=== PATIENT | male | born 1940 | race Caucasian/White ===

== ENCOUNTER 2017-12-16 08:37 | Inpatient (IN) | payer MEDICARE, OTHER ==
[2017-12-11 11:43] LABS: BASOPHILS % (AUTO) 0.3 % (0-1); EOSINOPHILS # (AUTO) 0.4 X10'3 (0-0.9); EOSINOPHILS % (AUTO) 3.7 % (0-6); LYMPHOCYTES # (AUTO) 2.2 X10'3 (1.1-4.8); LYMPHOCYTES % (AUTO) 22.7 % (21-51); MEAN CORPUSCULAR HEMOGLOBIN 26.5 PG (27.0-31.0); MEAN CORPUSCULAR HGB CONC 32.3 % (33.0-36.5); MEAN CORPUSCULAR VOLUME 82.3 FL (78-98); MONOCYTES # (AUTO) 0.6 X10'3 (0-0.9); MONOCYTES % (AUTO) 6.2 % (2-12); NEUTROPHILS # (AUTO) 6.6 X10'3 (1.8-7.7); NEUTROPHILS % (AUTO) 67.1 % (42-75); PRE OP HEMATOCRIT 39.7 % (42.0-52.0); PRE OP HEMOGLOBIN 12.8 g/dL (14.0-17.9); PRE OP PLATELET COUNT 219 X10'3 (140-440); RED BLOOD COUNT 4.83 X10'6 (4.70-6.10); RED CELL DISTRIBUTION WIDTH 17.5 % (11.5-14.5)
[2017-12-11 11:45] LABS: CLARITY,URINE CLEAR (Clear); COLOR,URINE YELLOW (Yellow); GLUCOSE, URINE NEGATIVE (Neg); KETONES,URINE NEGATIVE (Neg); LEUKOCYTE ESTERASE ,URINE NEGATIVE (Neg); NITRITES, URINE NEGATIVE (Neg); OCCULT BLOOD,URINE NEGATIVE (Neg); PROTEIN,URINE NEGATIVE (Neg)
[2017-12-11 11:50] LABS: UA COLLECTION TYPE NON-SPECIFIED
[2017-12-11 11:52] LABS: HEMOGLOBIN A1C 7.2 % (4.5-6.2)
[2017-12-11 11:59] LABS: ALBUMIN 3.5 G/DL (3.4-5.0); ALBUMIN/GLOBULIN RATIO 0.7 (1.1-1.5); ALKALINE PHOSPHATASE 81 IU/L (46-116); BLOOD UREA NITROGEN 33 MG/DL (7-18); CALCIUM 9.5 MG/DL (8.5-10.1); CHLORIDE 102 MMOL/L (99-107); CREATININE 1.18 MG/DL (0.60-1.10); PRE OP ALT 33 U/L (30-65); PRE OP ANION GAP 7 (8-16); PRE OP AST 28 U/L (10-37); PRE OP BILIRUB, TOTAL 0.3 MG/DL (0.0-1.0); PRE OP GLUCOSE 182 MG/DL (70-104); PRE OP POTASSIUM 4.9 MMOL/L (3.4-5.1); PRE OP SODIUM 140 MMOL/L (135-145); TOTAL CARBON DIOXIDE 31.5 MMOL/L (24-32); TOTAL PROTEIN 8.2 G/DL (6.4-8.2); eGFR 60 ML/MIN
[2017-12-11 12:14] LABS: PRE OP PROTIME 10.1 SECONDS (9.0-12.0)
[2017-12-16] VITALS (26 sets, daily range): BP systolic 103–151; BP diastolic 59–93
[~2017-12-16] VITALS: Ht 172.7 cm; Wt 71.0 kg
[~2017-12-16 08:37] MED LIST: ASCO-157 PO; ASPI-611 PO; CHOL10002 PO; DOCUMENT DATE & TIME OF BETA-BLOCKER PO ONE; DRON400T2 PO; ENAL10TA PO; FERR325T28 PO; FURO40TA4 PO; LACT1CAP65 PO; LIPA1CAP18 PO; MAGN500C16 PO; METF10002 PO; METO25TA6 PO; MULT-1179 PO; OMEP20CA10 PO; SIMV20TA PO; ceFAZolin 2gm in dextrose, iso 100 ML IV ONE; famotidine 20mg tablet PO ONE; ringers solution, lacted 1,000 ML IV SCH
[2017-12-16] MEDS ORDERED: BUPIVAcaine/PF 2.5 mg/ml (0.25%) 30ml vial ONE (12:57)
[2017-12-16] MEDS ORDERED: fentaNYL /PF 50mcg/ml 5ml ampule ONE (13:02)
[2017-12-16] MEDS ORDERED: midazolam 2 mg/2 ml injection ONE (13:03)
[2017-12-16] MEDS ORDERED: propofol inj 20 ML IV ONE (13:05)
[2017-12-16] MEDS ORDERED: rocuronium 10mg/ml inj IV ONE (13:06)
[2017-12-16] MEDS ORDERED: LIDOcaine 1%/PF (10mg/ml) 5ml vial ONE (13:06)
[2017-12-16] MEDS ORDERED: ringers solution, lacted 1,000 ML IV SCH ×2 (13:56→20:10)
[2017-12-16] MEDS ORDERED: HYDROmorphone inj. 0.5 MG/0.5 ML DISP.SYRIN IV PRN ×2 (14:00)
[2017-12-16] MEDS ORDERED: fentaNYL/PF 50MCG/1 ML 2ML syringe IV PRN (14:00)
[2017-12-16] MEDS ORDERED: ondansetron/PF 4mg/2ml inj IV PRN ×2 (14:00→16:35)
[2017-12-16] MEDS ORDERED: neostigmine methylsulfate 1 MG/ML 10ml vial ONE (14:37)
[2017-12-16] MEDS ORDERED: glycopyrrolate 0.2mg/ml inj ONE (14:37)
[2017-12-16] MEDS: fentaNYL/PF 50MCG/1 ML 2ML syringe IV PRN ×2 (16:10→16:50)
[2017-12-16] MEDS ORDERED: HYDROcodone/acetaminophen 10/325mg tab PO PRN (16:35)
[2017-12-16] MEDS ORDERED: naloxone 0.4 mg/ml inj IV PRN (16:35)
[2017-12-16] MEDS ORDERED: CADD PCA waste documentation MC PRN (16:35)
[2017-12-16] MEDS: HYDROmorphone/NS 1 mg/ml CADD 50 ML IV SCH ×2 (17:03→23:00)
[2017-12-16] MEDS: dronedarone hcl 400mg tablet PO SCH ×2 (17:30→21:51)
[2017-12-16] MEDS: CREON 36000 UNIT PO SCH (18:00)
[2017-12-16] MEDS ORDERED: normal saline 1000ml 1,000 ML IV SCH (19:20)
[2017-12-16] MEDS ORDERED: ferrous sulfate 325mg tablet PO SCH (21:00)
[2017-12-16] MEDS: metoprolol tartrate 25mg tablet PO SCH (21:44)
[2017-12-16] MEDS: metFORMIN 500mg tablet PO SCH (21:45)
[2017-12-17] VITALS: BP 128/72
[2017-12-17] MEDS: HYDROmorphone/NS 1 mg/ml CADD 50 ML IV SCH ×5 (01:00→12:29)
[2017-12-17 07:00] VITALS: BP 108/67
[2017-12-17] MEDS: CREON 36000 UNIT PO SCH ×2 (08:00→12:34)
[2017-12-17] MEDS ORDERED: lactobacillus rhamnosus 10,000 MMU CELLS/CAPSULE PO SCH (08:00)
[2017-12-17] MEDS ORDERED: lisinopril 10 MG tablet PO SCH (08:00)
[2017-12-17] MEDS ORDERED: magnesium oxide 400mg tablet PO SCH (08:00)
[2017-12-17] MEDS ORDERED: multivitamins, therapeutics tablet PO SCH (08:00)
[2017-12-17] MEDS ORDERED: ascorbic acid 500mg tablet PO SCH (08:00)
[2017-12-17] MEDS ORDERED: furosemide 40mg tablet PO SCH (08:00)
[2017-12-17] MEDS ORDERED: vitamin D (cholecalciferol) 1,000 unit tablet PO SCH (08:00)
[2017-12-17] MEDS ORDERED: aspirin 81mg tab.chew PO SCH (08:30)
[2017-12-17] MEDS: metoprolol tartrate 25mg tablet PO SCH (08:38)
[2017-12-17] MEDS: metFORMIN 500mg tablet PO SCH (08:40)
[2017-12-17] MEDS: dronedarone hcl 400mg tablet PO SCH (08:41)
[2017-12-17 12:00] VITALS: BP 124/71
== END 2017-12-17 16:00 | disposition home or self-care (01) | DRG 337 ==
LOC: PAS 08:37 → SUR 3N 16:33 → OBSVTOIN 16:33
PROVIDERS: ADMIT Surgery; ATTEND Surgery
PROC: 0DNU4ZZ Release Omentum, Percutaneous Endoscopic Approach (ICD-10-PCS; 2017-12-16)
PROC: 0DNE4ZZ Release Large Intestine, Percutaneous Endoscopic Approach (ICD-10-PCS; 2017-12-16)
PROC: 0DN84ZZ Release Small Intestine, Percutaneous Endoscopic Approach (ICD-10-PCS; 2017-12-16)
PROC: 0WUF4JZ Supplement Abdominal Wall with Synthetic Substitute, Percutaneous Endoscopic Approach (ICD-10-PCS; principal; 2017-12-16 13:34)
DX: K43.2 Incisional hernia without obstruction or gangrene (principal); E11.9 Type 2 diabetes mellitus without complications; G47.30 Sleep apnea, unspecified; K66.0 Peritoneal adhesions (postprocedural) (postinfection); I25.10 Atherosclerotic heart disease of native coronary artery without angina pectoris; I10 Essential (primary) hypertension; Z90.49 Acquired absence of other specified parts of digestive tract; Z88.8 Allergy status to other drugs, medicaments and biological substances; Z79.899 Other long term (current) drug therapy; Z79.84 Long term (current) use of oral hypoglycemic drugs; Z85.038 Personal history of other malignant neoplasm of large intestine; Z82.49 Family history of ischemic heart disease and other diseases of the circulatory system; Z95.5 Presence of coronary angioplasty implant and graft; Z95.1 Presence of aortocoronary bypass graft; Z87.891 Personal history of nicotine dependence
CPT/HCPCS: 36415; 71045; 80053; 81003; 82948; 83036; 85025; 85610; 85730; 87070; A7000; C1758; C1781; J0690; J1170; J2001; J2250; J2704; J2710; J3010; J3490; J7030; J7120

== ENCOUNTER 2019-06-19 18:11 | Inpatient (IN) | payer MEDICARE, OTHER ==
[~2019-06-19] VITALS: Ht 172.7 cm; Wt 80.0 kg
[2019-06-19] MEDS: normal saline 1000ml 1,000 ML IV SCH (00:10)
[~2019-06-19 18:11] MED LIST changes: -DOCUMENT DATE & TIME OF BETA-BLOCKER PO ONE; -ENAL10TA PO; +METF-438 PO; -METF10002 PO; -OMEP20CA10 PO; +OMEP20CA11 PO; -ceFAZolin 2gm in dextrose, iso 100 ML IV ONE; -famotidine 20mg tablet PO ONE; -ringers solution, lacted 1,000 ML IV SCH
[2019-06-19 19:08] LABS: BASOPHILS # (AUTO) 0.1 X10'3 (0-0.2); BASOPHILS % (AUTO) 0.7 % (0-1); EOSINOPHILS % (AUTO) 0.3 % (0-6); HEMATOCRIT 36.3 % (42.0-52.0); HEMOGLOBIN 11.6 g/dl (14.0-17.9); LYMPHOCYTES # (AUTO) 0.9 X10'3 (1.1-4.8); LYMPHOCYTES % (AUTO) 6.5 % (21-51); MEAN CORPUSCULAR HEMOGLOBIN 29.1 PG (27.0-31.0); MEAN CORPUSCULAR VOLUME 90.9 FL (78-98); MEAN PLATELET VOLUME 8.9 FL (7.4-10.4); MONOCYTES # (AUTO) 0.4 X10'3 (0-0.9); MONOCYTES % (AUTO) 3.3 % (2-12); NEUTROPHILS # (AUTO) 11.8 X10'3 (1.8-7.7); NEUTROPHILS % (AUTO) 89.2 % (42-75); PLATELET COUNT 172 X10'3 (140-440); RED CELL DISTRIBUTION WIDTH 18.5 % (11.5-14.5); WHITE BLOOD COUNT 13.3 X10'3 (4.5-11.0)
[2019-06-19 19:20] LABS: ALANINE AMINOTRANSFERASE 22 U/L (12-78); ALBUMIN 3.7 G/DL (3.4-5.0); ALBUMIN/GLOBULIN RATIO 0.8 (1.1-1.5); ALKALINE PHOSPHATASE 92 IU/L (46-116); ANION GAP 10 (8-16); ASPARTATE AMINO TRANSFERASE 22 U/L (10-37); BILIRUBIN,TOTAL 0.6 MG/DL (0.1-1.0); BLOOD UREA NITROGEN 28 MG/DL (7-18); BUN/CREATININE RATIO 22.4 (5.4-32.0); CALCIUM 9.4 MG/DL (8.5-10.1); CHLORIDE 99 MMOL/L (99-107); CREATININE 1.25 MG/DL (0.60-1.10); GLUCOSE 217 MG/DL (70-104); POTASSIUM 4.6 MMOL/L (3.5-5.1); SODIUM 135 MMOL/L (135-145); TOTAL CARBON DIOXIDE 26.2 MMOL/L (24-32); TOTAL PROTEIN 8.5 G/DL (6.4-8.2); eGFR 56 ML/MIN
[2019-06-19 19:35] LABS: LIPASE 4009 U/L (73-393)
--- NOTE | 2019-06-19 19:47 | NUR ---
DR FERGUSON AT BEDSIDE. PTS SISTER IN LAW, HENOK, AT BEDSIDE. PT WITH STABLE VS. REPORTS PAIN IS 9 OUT OF 10, AND [facility]WIGE DOWE[facility] HOME DILAUDID WITH NO RELIEF (TOOK LAST AT 1045, 1245, 1435, 1640)
[2019-06-19] MEDS ORDERED: normal saline 1000ML IV soln IVB ONE (19:50)
[2019-06-19] MEDS ORDERED: HYDROmorphone 1 mg/ml syringe IV ONE (19:50)
[2019-06-19] MEDS ORDERED: ondansetron/PF 4mg/2ml inj IV ONE (19:50)
[2019-06-19 20:30] LABS: CLARITY,URINE CLEAR (Clear); COLOR,URINE YELLOW (Yellow); GLUCOSE, URINE NEGATIVE (Neg); KETONES,URINE 15 mg/dl (Neg); LEUKOCYTE ESTERASE ,URINE NEGATIVE (Neg); NITRITES, URINE NEGATIVE (Neg); OCCULT BLOOD,URINE NEGATIVE (Neg); PROTEIN,URINE TRACE mg/dl (Neg)
[2019-06-19 20:33] LABS: UA COLLECTION TYPE CLN CATCH MIDSTREAM
[2019-06-19 20:43] LABS: BACTERIA,URINE NONE SEEN /HPF (Neg); MUCUS STRANDS FEW /LPF (Neg); RBC,URINE 0-2 /HPF (0-2); SQUAMOUS EPITHELIAL CELL,UR FEW /LPF (FEW); WBC,URINE 0-4 /HPF (0-4)
[2019-06-19 20:44] LABS: HYALINE CASTS 0-3 /LPF (NEGATIVE)
[2019-06-19] MEDS ORDERED: insulin Lispro (HumaLOG) vial - multi-dose SQ SCH (21:40)
[2019-06-19] MEDS ORDERED: MESSAGE TO PHARMACY PO ONE (21:40)
[2019-06-19] MEDS ORDERED: mag hydrox/Alum hydrox/simeth 30ml oral suspension PO PRN (21:40)
[2019-06-19] MEDS ORDERED: potassium CL 10mEq/100ml bag 100 ML IV PRN ×2 (21:40)
[2019-06-19] MEDS ORDERED: dextrose ORAL solution 15 GM/59 ML bottle PO PRN (21:40)
[2019-06-19] MEDS ORDERED: ondansetron/PF 4mg/2ml inj IV PRN (21:40)
[2019-06-19] MEDS ORDERED: potassium Cl 20 mEq SR tablet PO PRN ×2 (21:40)
[2019-06-19] MEDS ORDERED: acetaminophen 325mg tablet PO PRN (21:40)
[2019-06-19] MEDS ORDERED: dextrose 50%-water 50ml dispensing syringe IV PRN ×2 (21:40)
[2019-06-19] MEDS ORDERED: magnesium 2GM in 50ml NS 50 ML IV PRN (21:40)
[2019-06-19] MEDS ORDERED: glucagon, human recombinant 1mg kit SUBCUT PRN (21:40)
[2019-06-19] MEDS ORDERED: magnesium 4gm in 100ml NS 100 ML IV PRN (21:40)
[2019-06-19] MEDS ORDERED: ALLO100T PO (21:57)
[2019-06-19] MEDS ORDERED: HYDR8TAB18 PO (22:05)
--- NOTE | 2019-06-19 22:16 | NUR ---
DR. WHITESIDE AT BEDSIDE FOR ADMISSION. PT REPORTS HIS PAIN IS GONE. MED REC COMPLETED. VSS.
--- NOTE | 2019-06-19 23:30 | NUR ---
Report received from Kaya MONTES DE OCA in the ER. Pt arrived on the unit via wheelchair. VSS, NS running @200. Pt had no signs of distress, will continue to monitor.
[2019-06-20] VITALS: BP 123/71
[2019-06-20] MEDS ORDERED: HYDROmorphone 1 mg/ml syringe IV ONE (00:20)
[2019-06-20] MEDS: normal saline 1000ml 1,000 ML IV SCH ×5 (02:40→23:40)
--- NOTE | 2019-06-20 06:38 | NUR ---
Problems reprioritized. Patient report given, questions answered & plan of care reviewed with Kristen MONTES DE OCA.
[2019-06-20 06:59] LABS: BASOPHILS % (AUTO) 0.2 % (0-1); EOSINOPHILS % (AUTO) 0.1 % (0-6); HEMATOCRIT 35.1 % (42.0-52.0); HEMOGLOBIN 11.2 g/dl (14.0-17.9); LYMPHOCYTES # (AUTO) 0.8 X10'3 (1.1-4.8); LYMPHOCYTES % (AUTO) 6.6 % (21-51); MEAN CORPUSCULAR HEMOGLOBIN 29.2 PG (27.0-31.0); MEAN CORPUSCULAR VOLUME 91.2 FL (78-98); MEAN PLATELET VOLUME 9.5 FL (7.4-10.4); MONOCYTES # (AUTO) 0.7 X10'3 (0-0.9); MONOCYTES % (AUTO) 5.3 % (2-12); NEUTROPHILS # (AUTO) 10.9 X10'3 (1.8-7.7); NEUTROPHILS % (AUTO) 87.8 % (42-75); PLATELET COUNT 163 X10'3 (140-440); RED BLOOD COUNT 3.85 X10'6 (4.70-6.10); RED CELL DISTRIBUTION WIDTH 18.8 % (11.5-14.5); WHITE BLOOD COUNT 12.4 X10'3 (4.5-11.0)
[2019-06-20 07:04] LABS: ALANINE AMINOTRANSFERASE 19 U/L (12-78); ALBUMIN 3.2 G/DL (3.4-5.0); ALBUMIN/GLOBULIN RATIO 0.7 (1.1-1.5); ALKALINE PHOSPHATASE 81 IU/L (46-116); ANION GAP 7 (8-16); ASPARTATE AMINO TRANSFERASE 22 U/L (10-37); BILIRUBIN,TOTAL 0.5 MG/DL (0.1-1.0); BLOOD UREA NITROGEN 21 MG/DL (7-18); BUN/CREATININE RATIO 20.8 (5.4-32.0); CHLORIDE 103 MMOL/L (99-107); CREATININE 1.01 MG/DL (0.60-1.10); GLUCOSE 141 MG/DL (70-104); LIPASE 1251 U/L (73-393); MAGNESIUM 1.7 MG/DL (1.5-2.4); POTASSIUM 4.8 MMOL/L (3.5-5.1); SODIUM 138 MMOL/L (135-145); TOTAL CARBON DIOXIDE 28.2 MMOL/L (24-32); TOTAL PROTEIN 7.8 G/DL (6.4-8.2); eGFR 71 ML/MIN
[2019-06-20] MEDS: dronedarone hcl 400mg tablet PO SCH ×2 (07:45→20:05)
[2019-06-20] MEDS: K and/or MAG REPLACEMENT MC SCH (07:50)
[2019-06-20 08:00] VITALS: BP 106/69
[2019-06-20] MEDS: LIPASE/PROTEASE/AMYLASE 4,200 unit CAPSULE.DR PO SCH ×3 (08:00→17:23)
[2019-06-20] MEDS: aspirin 81mg tablet.DR PO SCH (08:08)
[2019-06-20] MEDS: furosemide 40mg tablet PO SCH (08:08)
[2019-06-20] MEDS: vitamin D (cholecalciferol) 1,000 unit tablet PO SCH (08:08)
[2019-06-20] MEDS: magnesium oxide 400mg tablet PO SCH (08:08)
[2019-06-20] MEDS: multivitamins, therapeutics tablet PO SCH (08:08)
[2019-06-20] MEDS: ascorbic acid 500mg tablet PO SCH (08:09)
[2019-06-20] MEDS: lactobacillus rhamnosus 10,000 MMU CELLS/CAPSULE PO SCH (08:09)
[2019-06-20] MEDS: metoprolol tartrate 25mg tablet PO SCH ×2 (08:10→20:04)
[2019-06-20] MEDS: enoxaparin 40mg/0.4ml syringe SQ SCH (08:10)
[2019-06-20 09:31] LABS: ANISOCYTOSIS 2+; ELLIPTOCYTES FEW; PLATELET ESTIMATE NORMAL
[2019-06-20] MEDS ORDERED: FLU VACC QS2019-20 36MOS UP/PF 60 MCG/0.5 ML SYRINGE IMVAC ONE (10:00)
--- NOTE | 2019-06-20 10:40 | NUR ---
Patient complain of 5/10 pain this morning. Looked in the eMAR and there aren't any pain medications ordered. Paged the doctor with not response. Patient updated on the situation. Patient later states pain 8/10. Doctor paged again with no response. Patient stating he wants to leave AMA if he isn't going to have any pain management here. Patient encouraged to stay. Will attempt to reach the doctor.
[2019-06-20 11:00] VITALS: BP 138/76
[2019-06-20] MEDS: HYDROmorphone 1 mg/ml syringe IV PRN ×3 (11:23→20:01)
--- NOTE | 2019-06-20 16:05 | NUR ---
DM consult: Pt with A1c 7.4 admit with acute on chronic pancreatitis. Pt seen at bedside states he already has a lot of education however agrees to receive written pancreatitis nutrition therapy and DM education with referral to outpatient DM class. Noted that per records patient's A1c generally ranges 7.0-7.2. Pt with no questions at this time. RD contact information provided. Pt currently NPO endorsing a low appetite secondary to pain. Recommend diet advancement to low fat CHO controlled as medically indicated. Pt denies food allergies or difficulty chewing/swallowing. Will continue to follow and monitor need for ONS pending diet advancement. Addendum: 06/20/19 at [address] Amended: Links added.
--- NOTE | 2019-06-20 18:14 | NUR ---
Student documentation: I have reviewed and agree with all interventions, assessments performed and documented by Cady Connelly.
--- NOTE | 2019-06-20 18:26 | NUR ---
Problems reprioritized. Patient report given, questions answered & plan of care reviewed with TAVON Stone.
--- NOTE | 2019-06-20 18:56 | NUR ---
Patient in room [facility]. I have received report from Kristen MONTES DE OCA and had the opportunity to ask questions and assume patient care.
[2019-06-20 20:00] VITALS: BP 125/75
[2019-06-20] MEDS: ferrous sulfate 325mg tablet PO SCH (20:06)
[2019-06-20] MEDS: insulin glargine (Lantus) pen - multi-dose SQ SCH (21:00)
[2019-06-20] MEDS: atorvastatin 10mg tablet PO SCH (21:25)
[2019-06-21] VITALS: BP 130/75
[2019-06-21] MEDS: HYDROmorphone 1 mg/ml syringe IV PRN ×2 (02:15→06:51)
[2019-06-21 05:45] LABS: BASOPHILS % (AUTO) 0.2 % (0-1); EOSINOPHILS % (AUTO) 0.1 % (0-6); HEMATOCRIT 35.3 % (42.0-52.0); HEMOGLOBIN 11.5 g/dl (14.0-17.9); LYMPHOCYTES # (AUTO) 1.3 X10'3 (1.1-4.8); LYMPHOCYTES % (AUTO) 8.1 % (21-51); MEAN CORPUSCULAR HEMOGLOBIN 29.5 PG (27.0-31.0); MEAN CORPUSCULAR HGB CONC 32.5 g/dL (33.0-36.5); MEAN CORPUSCULAR VOLUME 90.6 FL (78-98); MEAN PLATELET VOLUME 9.8 FL (7.4-10.4); MONOCYTES # (AUTO) 1.2 X10'3 (0-0.9); MONOCYTES % (AUTO) 7.8 % (2-12); NEUTROPHILS # (AUTO) 13.1 X10'3 (1.8-7.7); NEUTROPHILS % (AUTO) 83.8 % (42-75); PLATELET COUNT 160 X10'3 (140-440); RED CELL DISTRIBUTION WIDTH 18.1 % (11.5-14.5); WHITE BLOOD COUNT 15.7 X10'3 (4.5-11.0)
[2019-06-21 05:54] LABS: ALANINE AMINOTRANSFERASE 17 U/L (12-78); ALBUMIN 2.8 G/DL (3.4-5.0); ALBUMIN/GLOBULIN RATIO 0.6 (1.1-1.5); ALKALINE PHOSPHATASE 76 IU/L (46-116); ANION GAP 9 (8-16); ASPARTATE AMINO TRANSFERASE 17 U/L (10-37); BILIRUBIN,TOTAL 0.6 MG/DL (0.1-1.0); BLOOD UREA NITROGEN 13 MG/DL (7-18); BUN/CREATININE RATIO 15.7 (5.4-32.0); CALCIUM 8.8 MG/DL (8.5-10.1); CHLORIDE 107 MMOL/L (99-107); CREATININE 0.83 MG/DL (0.60-1.10); GLUCOSE 127 MG/DL (70-104); LIPASE 577 U/L (73-393); MAGNESIUM 1.4 MG/DL (1.5-2.4); POTASSIUM 4.3 MMOL/L (3.5-5.1); SODIUM 140 MMOL/L (135-145); TOTAL CARBON DIOXIDE 24.2 MMOL/L (24-32); TOTAL PROTEIN 7.4 G/DL (6.4-8.2); eGFR 89 ML/MIN
--- NOTE | 2019-06-21 06:25 | NUR ---
Patient in room [facility]. I have received report from TAVON Stone and had the opportunity to ask questions and assume patient care.
[2019-06-21 06:30] VITALS: BP 131/79
--- NOTE | 2019-06-21 06:53 | NUR ---
Problems reprioritized. Patient report given, questions answered & plan of care reviewed with Miriam RN.
[2019-06-21] MEDS: K and/or MAG REPLACEMENT MC SCH (07:22)
[2019-06-21] MEDS: LIPASE/PROTEASE/AMYLASE 4,200 unit CAPSULE.DR PO SCH ×3 (07:23→17:51)
[2019-06-21] MEDS: normal saline 1000ml 1,000 ML IV SCH ×3 (08:31→21:51)
[2019-06-21] MEDS ORDERED: HYDROmorphone inj. 0.5 MG/0.5 ML DISP.SYRIN ONE (10:51)
[2019-06-21] MEDS: dronedarone hcl 400mg tablet PO SCH ×2 (10:52→20:34)
[2019-06-21] MEDS: aspirin 81mg tablet.DR PO SCH (10:52)
[2019-06-21] MEDS: multivitamins, therapeutics tablet PO SCH (10:52)
[2019-06-21] MEDS: magnesium oxide 400mg tablet PO SCH (10:52)
[2019-06-21] MEDS: lactobacillus rhamnosus 10,000 MMU CELLS/CAPSULE PO SCH (10:52)
[2019-06-21] MEDS: vitamin D (cholecalciferol) 1,000 unit tablet PO SCH (10:52)
[2019-06-21] MEDS: ascorbic acid 500mg tablet PO SCH (10:52)
[2019-06-21] MEDS: magnesium Cl slow-release 64mg tablet PO PRN ×2 (10:52→17:51)
[2019-06-21] MEDS: metoprolol tartrate 25mg tablet PO SCH ×2 (10:53→20:35)
[2019-06-21] MEDS: furosemide 40mg tablet PO SCH (10:53)
[2019-06-21] MEDS: enoxaparin 40mg/0.4ml syringe SQ SCH (10:54)
[2019-06-21 11:30] VITALS: BP 151/98
--- NOTE | 2019-06-21 18:10 | NUR ---
Problems reprioritized. Patient report given, questions answered & plan of care reviewed with TAVON Stone.
--- NOTE | 2019-06-21 18:36 | NUR ---
Patient in room [facility]. I have received report from Miriam MONTES DE OCA and had the opportunity to ask questions and assume patient care.
[2019-06-21 20:00] VITALS: BP 130/82
[2019-06-21] MEDS: atorvastatin 10mg tablet PO SCH (20:34)
[2019-06-21] MEDS: ferrous sulfate 325mg tablet PO SCH (20:35)
[2019-06-21] MEDS: insulin glargine (Lantus) pen - multi-dose SQ SCH (20:41)
[2019-06-21 23:53] VITALS: BP 106/66
[2019-06-22] MEDS: HYDROmorphone 1 mg/ml syringe IV PRN (03:45)
[2019-06-22] MEDS: normal saline 1000ml 1,000 ML IV SCH ×2 (03:50→09:45)
[2019-06-22 05:59] LABS: BASOPHILS % (AUTO) 0.3 % (0-1); EOSINOPHILS # (AUTO) 0.2 X10'3 (0-0.9); EOSINOPHILS % (AUTO) 1.7 % (0-6); HEMATOCRIT 32.6 % (42.0-52.0); HEMOGLOBIN 10.4 g/dl (14.0-17.9); LYMPHOCYTES # (AUTO) 1.6 X10'3 (1.1-4.8); LYMPHOCYTES % (AUTO) 13.6 % (21-51); MEAN CORPUSCULAR HEMOGLOBIN 29.1 PG (27.0-31.0); MEAN CORPUSCULAR HGB CONC 31.8 g/dL (33.0-36.5); MEAN CORPUSCULAR VOLUME 91.3 FL (78-98); MEAN PLATELET VOLUME 9.9 FL (7.4-10.4); MONOCYTES % (AUTO) 8.8 % (2-12); NEUTROPHILS # (AUTO) 8.8 X10'3 (1.8-7.7); NEUTROPHILS % (AUTO) 75.6 % (42-75); PLATELET COUNT 144 X10'3 (140-440); RED BLOOD COUNT 3.57 X10'6 (4.70-6.10); WHITE BLOOD COUNT 11.7 X10'3 (4.5-11.0)
--- NOTE | 2019-06-22 06:05 | NUR ---
Patient in room [facility]. I have received report from TAVON Stone and had the opportunity to ask questions and assume patient care.
--- NOTE | 2019-06-22 06:14 | NUR ---
Problems reprioritized. Patient report given, questions answered & plan of care reviewed with Miriam RN.
[2019-06-22 06:30] VITALS: BP 125/72
[2019-06-22 06:32] LABS: ALANINE AMINOTRANSFERASE 16 U/L (12-78); ALBUMIN 2.5 G/DL (3.4-5.0); ALBUMIN/GLOBULIN RATIO 0.6 (1.1-1.5); ALKALINE PHOSPHATASE 73 IU/L (46-116); ANION GAP 6 (8-16); ASPARTATE AMINO TRANSFERASE 19 U/L (10-37); BILIRUBIN,TOTAL 0.9 MG/DL (0.1-1.0); BLOOD UREA NITROGEN 14 MG/DL (7-18); BUN/CREATININE RATIO 17.7 (5.4-32.0); CHLORIDE 105 MMOL/L (99-107); CREATININE 0.79 MG/DL (0.60-1.10); GLUCOSE 102 MG/DL (70-104); LIPASE 86 U/L (73-393); MAGNESIUM 1.5 MG/DL (1.5-2.4); POTASSIUM 4.2 MMOL/L (3.5-5.1); SODIUM 138 MMOL/L (135-145); TOTAL CARBON DIOXIDE 26.7 MMOL/L (24-32); TOTAL PROTEIN 6.9 G/DL (6.4-8.2); eGFR > 90 ML/MIN
[2019-06-22 06:51] LABS: PLATELET ESTIMATE NORMAL
[2019-06-22 06:52] LABS: ANISOCYTOSIS 2+
[2019-06-22] MEDS: K and/or MAG REPLACEMENT MC SCH (07:12)
[2019-06-22] MEDS: lactobacillus rhamnosus 10,000 MMU CELLS/CAPSULE PO SCH (09:19)
[2019-06-22] MEDS: LIPASE/PROTEASE/AMYLASE 4,200 unit CAPSULE.DR PO SCH ×2 (09:19→12:40)
[2019-06-22] MEDS: furosemide 40mg tablet PO SCH (09:20)
[2019-06-22] MEDS: vitamin D (cholecalciferol) 1,000 unit tablet PO SCH (09:20)
[2019-06-22] MEDS: aspirin 81mg tablet.DR PO SCH (09:20)
[2019-06-22] MEDS: magnesium oxide 400mg tablet PO SCH (09:20)
[2019-06-22] MEDS: dronedarone hcl 400mg tablet PO SCH (09:20)
[2019-06-22] MEDS: ascorbic acid 500mg tablet PO SCH (09:20)
[2019-06-22] MEDS: multivitamins, therapeutics tablet PO SCH (09:20)
[2019-06-22] MEDS: metoprolol tartrate 25mg tablet PO SCH (09:21)
[2019-06-22] MEDS: enoxaparin 40mg/0.4ml syringe SQ SCH (09:21)
[2019-06-22 11:00] VITALS: BP 123/72
[2019-06-22] MEDS: dextrose ORAL solution 15 GM/59 ML bottle PO PRN ×2 (11:57→12:25)
--- NOTE | 2019-06-22 15:55 | NUR ---
DC inst provided to pt. IV DC'd, tip intact. All belongings sent w/pt. WC to front lobby
== END 2019-06-22 15:55 | disposition home or self-care (01) | DRG 438 ==
LOC: ER 18:13 → ED HOLD 23:20 → EDBEDREQ 23:25 → SUR 3N 06-20
PROVIDERS: ADMIT Family Medicine; ATTEND Family Medicine
DX: K85.90 Acute pancreatitis without necrosis or infection, unspecified (principal); N17.0 Acute kidney failure with tubular necrosis; I48.20 Chronic atrial fibrillation, unspecified; K86.3 Pseudocyst of pancreas; K86.1 Other chronic pancreatitis; E11.42 Type 2 diabetes mellitus with diabetic polyneuropathy; Z88.2 Allergy status to sulfonamides; Z88.1 Allergy status to other antibiotic agents; Z91.041 Radiographic dye allergy status; Z23 Encounter for immunization; Z79.82 Long term (current) use of aspirin; Z80.1 Family history of malignant neoplasm of trachea, bronchus and lung; Z82.49 Family history of ischemic heart disease and other diseases of the circulatory system; Z90.49 Acquired absence of other specified parts of digestive tract; Z87.891 Personal history of nicotine dependence
CPT/HCPCS: 36415; 74176; 80053; 81001; 82948; 83036; 83605; 83690; 83735; 85025; 87040; 87081; 96361; 96374; 96375; 99285; G0378; J1170; J1650; J1815; J2405; J7030; Q2037